=== PATIENT | male | born 1945 | race Caucasian/White ===

== ENCOUNTER → 2018-11-28 | Outpatient (CLI) | payer MEDICARE, OTHER ==
[~2018-11-28] MED LIST: ACIPHX20PT PO; CETI10CA8 PO; FLUT16SP19 NS; IRBE300T6 PO; LEVO50TA80 PO; MELO-149 PO; VALS320T12 PO; VARI50KI IM; VERA180C10; VERA360C6 PO
[2018-11-28 09:05] LABS: PLATELET COUNT, AUTOMATED 295 K/uL (150-450)
[2018-11-28 15:47] LABS: LDL CHOLESTEROL 70 mg/dl
== END ==
LOC: LAB 08:39
PROVIDERS: ATTEND Internal Medicine
DX: Z01.812 Encounter for preprocedural laboratory examination (principal); Z12.5 Encounter for screening for malignant neoplasm of prostate; I49.3 Ventricular premature depolarization; K21.9 Gastro-esophageal reflux disease without esophagitis; I10 Essential (primary) hypertension
CPT/HCPCS: 36415; 81001; 84443; 85025; G0103; 82040; 82247; 82310; 82374; 82435; 82465; 82565; 82947; 83718; 84075; 84132; 84153; 84155; 84295; 84450; 84460; 84478; 84520